=== PATIENT | male | born 1995 | race Caucasian/White ===

== ENCOUNTER 2017-04-22 22:19 | Inpatient (IN) | payer OTHER ==
[~2017-04-22] VITALS: Ht 188 cm; Wt 120.0 kg
[2017-04-22] MEDS ORDERED: SODIUM CHLORIDE 0.9% 1,000ML IVBOLUS ONE (22:30)
[2017-04-22 23:05] LABS: BASOPHILS # (AUTO) 0.03 x10^3/uL (0-0.3); BASOPHILS % (AUTO) 0 % (0-1); EOSINOPHILS # (AUTO) 0.21 x10^3/uL (0-0.8); EOSINOPHILS % (AUTO) 2 % (1-7); LYMPHOCYTES # (AUTO) 2.58 x10^3/uL (1-6.1); LYMPHOCYTES % (AUTO) 26 % (22-44); MD NO; MEAN CORPUSCULAR HEMOGLOBIN 28.6 pg (27.5-34.5); MEAN CORPUSCULAR HGB CONC 33.2 g/dL (33.2-36.2); MEAN CORPUSCULAR VOLUME 86.2 fL (81-97); MEAN PLATELET VOLUME 8.2 fL (7.4-10.4); MONOCYTES # (AUTO) 0.72 x10^3/uL (0-1.4); MONOCYTES % (AUTO) 7 % (2-9); NEUTROPHILS # (AUTO) 6.38 x10^3/uL (1.8-8.0); NEUTROPHILS % (AUTO) 64 % (42-75); PLATELET COUNT 311 x10^3/uL (130-400); RED BLOOD COUNT 5.14 x10^6/uL (4.38-5.82); RED CELL DISTRIBUTION WIDTH 12.9 % (9.4-14.8)
[2017-04-22 23:18] LABS: ANION GAP 9 mmol/L (5-15); CALCIUM 8.8 mg/dL (8.5-10.1); CHLORIDE 110 mmol/L (98-107)
[2017-04-22 23:19] LABS: SALICYLATE LEVEL < 1.7 mg/dL (2.8-20.0)
[2017-04-22 23:20] LABS: ALANINE AMINOTRANSFERASE 56 U/L (12-78); ALKALINE PHOSPHATASE 61 U/L (45-117); BILIRUBIN,TOTAL 0.8 mg/dL (0.2-1.0); CREATININE 1.09 mg/dL (0.7-1.3); TOTAL PROTEIN 7.7 g/dL (6.4-8.2)
[2017-04-22 23:28] LABS: ACETAMINOPHEN < 2 mcg/mL (10-30)
[2017-04-22 23:57] LABS: RAPID INFLUENZA A Negative (Negative); RAPID INFLUENZA B Negative (Negative)
[2017-04-23] MEDS ORDERED: SODIUM CHLORIDE 0.9% 1,000ML IVBOLUS ONE (00:30)
[2017-04-23 02:14] LABS: AMPHETAMINE SCREEN, URINE Negative (Negative); BARBITURATE SCREEN, URINE Negative (Negative); BENZODIAZEPINE SCREEN, URINE Positive (Negative); CANNABINOID SCREEN, URINE Positive (Negative); COCAINE SCREEN, URINE Negative (Negative); METHADONE SCREEN, URINE Negative (Negative); OPIATE SCREEN, URINE Negative (Negative)
[2017-04-23 03:39] VITALS: BP 130/78
[2017-04-23] MEDS: ENOXAPARIN 40 MG/0.4 ML SQ SCH (05:13)
[2017-04-23] MEDS: D5%-0.9% NACL 1,000 ML IV SCH ×2 (05:13→10:56)
[2017-04-23] MEDS ORDERED: ACETAMINOPHEN 325 MG TABLET PO PRN (05:30)
[2017-04-23] MEDS ORDERED: ONDANSETRON 2MG/ML, 2ML IVPush PRN (05:30)
[2017-04-23 08:00] VITALS: BP 121/80
[2017-04-23 15:33] VITALS: BP 131/84
[2017-04-23 19:38] VITALS: BP 136/74
[2017-04-23] MEDS ORDERED: PHENOL THROAT SPRAY BOTTLE MM PRN (20:00)
[2017-04-24 03:43] VITALS: BP 107/70
[2017-04-24] MEDS: ENOXAPARIN 40 MG/0.4 ML SQ SCH (05:46)
[2017-04-24] MEDS ORDERED: PHEN177S5 MM (06:59)
[2017-04-24] MEDS ORDERED: BENZ1LOZ PO (06:59)
[2017-04-24 07:45] VITALS: BP 126/84
[2017-04-24] MEDS ORDERED: FLU VACC QS2017-18 (36MOS+) UP/PF 0.5 ML IM-VACC ONE (09:30)
== END 2017-04-24 09:53 | disposition home or self-care (01) | DRG 917 ==
LOC: ED 23:36 → EDIP 04-23 02:48 → 4WST 04-23 04:09 → DCLOUNGE 04-24 09:48
PROVIDERS: ADMIT Hospitalist; ATTEND Hospitalist
DX: T42.4X1A Poisoning by benzodiazepines, accidental (unintentional), initial encounter (principal); G92 Toxic encephalopathy; E66.9 Obesity, unspecified; Y92.89 Other specified places as the place of occurrence of the external cause; Z68.34 Body mass index [BMI] 34.0-34.9, adult; Z23 Encounter for immunization
CPT/HCPCS: 36415; 70450; 71045; 80053; 80307; 80329; 85025; 87400; 90686; 96360; J1650; J7042; G0480; J7030